=== PATIENT | female | born 1990 | race Caucasian/White ===

== ENCOUNTER → 2017-10-31 | Outpatient (CLI) | payer MEDICAID, OTHER ==
[~2017-10-31] MED LIST: PREN-53 PO
--- NOTE | 2017-10-31 13:09 | Diagnostic Imaging Report ---
INDICATION: survey. TECHNIQUE: Multiple real-time grayscale images were obtained over the gravid uterus. COMPARISON: None. FINDINGS: There is a single live fetus in a cephalic presentation. heart rate was recorded at 161 beats per minute. The placenta is anterior. The amniotic fluid volume is normal. Cervical length is 4.6 cm. survey demonstrates kidneys, bladder, and stomach to be unremarkable. brain is unremarkable. There is a three-vessel cord with normal insertion. The spine is unremarkable. Four-chamber heart view was not well seen. Biometrical measurements are as follows: Biparietal 4.92 cm, age 21 weeks 0 days. Head circumference 18.34 cm, age 20 weeks 5 days. Abdominal circumference 15.53 cm, age 20 weeks 5 days. Femur length 3.36 cm, age 20 weeks 4 days. Sonographic estimate age: 20 weeks 6 days. Sonographic estimated date of delivery: 03/14/2018. Estimated Weight: 368 gm (+/- 54 gm). LMP percentile: 66%. heart rate: 161 beats per minute. number: 1 of 1. IMPRESSION: Single live IUP at approximately 20 weeks 6 days gestational age. Estimated date of confinement sonographically is 03/14/2018. survey is unremarkable, although the four-chamber heart view was not well visualized and followup could be obtained. Dictated by: Dictated on workstation # [id number]
== END ==
LOC: RAD 09:41
PROVIDERS: ATTEND Obstetrics & Gynecology
DX: Z36.89 Encounter for other specified antenatal screening (principal); Z3A.20 20 weeks gestation of pregnancy
CPT/HCPCS: 76805

== ENCOUNTER 2018-03-06 05:30 | Outpatient (CLI) | payer OTHER ==
[~2018-03-06] VITALS: Ht 170.2 cm; Wt 106.6 kg
== END 2018-03-06 15:00 | disposition home or self-care (01) ==
LOC: PREOP 05:30
PROVIDERS: ATTEND Obstetrics & Gynecology
DX: Z01.818 Encounter for other preprocedural examination (principal)

== ENCOUNTER 2018-03-13 03:12 | Inpatient (IN) | payer OTHER ==
[~2018-03-13] VITALS: Ht 170.2 cm; Wt 107.5 kg
[2018-03-13] VITALS (7 sets, daily range): BP systolic 116–130; BP diastolic 67–83
[2018-03-13] MEDS ORDERED: CITRIC ACID/SOB CIT (BICITRA) 30 ML UDC ONE (05:08)
[2018-03-13] MEDS ORDERED: METOCLOPRAMIDE INJ 10 MG/2 ML (REGLAN) ONE (05:08)
[2018-03-13] MEDS ORDERED: LACTATED RINGERS 1,000 ML IV ONE (05:08)
[2018-03-13] MEDS ORDERED: FAMOTIDINE 20MG/2ML IV (PEPCID) ONE (05:08)
[2018-03-13] MEDS ORDERED: ceFAZolin 2 GM IV Premixed 50 ML ONE (05:13)
[2018-03-13] MEDS ORDERED: LACTATED RINGERS 1,000 ML IV SCH (05:58)
[2018-03-13] MEDS ORDERED: METOCLOPRAMIDE INJ 10 MG/2 ML (REGLAN) IV ONE (06:00)
[2018-03-13] MEDS ORDERED: ceFAZolin 2 GM IV Premixed 50 ML IV ONE (06:00)
[2018-03-13] MEDS ORDERED: FAMOTIDINE 20MG/2ML IV (PEPCID) IV ONE (06:00)
[2018-03-13] MEDS ORDERED: CITRIC ACID/SOB CIT (BICITRA) 30 ML UDC PO ONE (06:00)
[2018-03-13] MEDS: LACTATED RINGERS 1,000 ML IV SCH ×2 (06:36→07:30)
[2018-03-13] MEDS ORDERED: BUPIVACAINE SPINAL 0.75% (SENSORCAINE) 2 ML AMP ONE (06:42)
[2018-03-13] MEDS ORDERED: LIDOCAINE PF 2% 5 ML (XYLOCAINE) VIAL ONE (06:42)
[2018-03-13] MEDS ORDERED: OXYTOCIN/NORMAL SALINE 500 ML IV ONE ×2 (06:42→08:08)
[2018-03-13] MEDS ORDERED: fentaNYL INJECTION 100 MCG/2 ML AMP ONE (06:43)
[2018-03-13 06:47] LABS: BASOPHILS # (AUTO) 0.1 10^3/uL (0.0-0.1); BASOPHILS % (AUTO) 0 % (0-10); EOSINOPHILS # (AUTO) 0.4 10^3/uL (0.0-0.3); EOSINOPHILS % (AUTO) 2 % (0-10); HEMATOCRIT 37 % (35-52); HEMOGLOBIN 12.3 G/DL (11.5-16.0); LYMPHOCYTES # (AUTO) 3.8 X 10^3 (1.0-4.0); LYMPHOCYTES % (AUTO) 23 % (12-44); MEAN CORPUSCULAR HEMOGLOBIN 27 PG (25-34); MEAN CORPUSCULAR HGB CONC 33 G/DL (32-36); MEAN CORPUSCULAR VOLUME 83 FL (80-99); MEAN PLATELET VOLUME 12.6 FL (7.4-10.4); MONOCYTES # (AUTO) 1.3 X 10^3 (0.0-1.0); MONOCYTES % (AUTO) 8 % (0-12); NEUTROPHILS % (AUTO) 67 % (42-75); PLATELET COUNT 159 10^3/uL (130-400); RED BLOOD COUNT 4.49 10^6/uL (4.35-5.85); RED CELL DISTRIBUTION WIDTH 14.9 % (10.0-14.5); WHITE BLOOD COUNT 16.5 10^3/uL (4.3-11.0)
[2018-03-13 06:58] LABS: BAND NEUTROPHILS 0 %; BASOPHILS % (MANUAL) 0 %; EOSINOPHILS % (MANUAL) 2 %; LYMPHOCYTES % (MANUAL) 27 %; MONOCYTES % (MANUAL) 6 %; NEUTROPHILS % (MANUAL) 61 %; REACTIVE LYMPHOCYTES 4 %
[2018-03-13 06:59] LABS: ANISOCYTOSIS SLIGHT; PLATELET CLUMPS SLIGHT; TOXIC GRANULATION/VACUOLAZATIO 1+
--- NOTE | 2018-03-13 07:16 | History & Physical-OB ---
OB - Chief Complaint & HPI Date/Time Date of Admission: Date of Admission: Mar 13, 2018 at 5:53 am Date seen by a Provider: Mar 13, 2018 Time Seen by a Provider: 07:00 Chief Complaint/History OB-Reason for Admission/Chief: Section Hx : 2 Hx Para: 1 Expected Date of Delivery: Mar 18, 2018 Gestational Age in Weeks: 39 Gestational Age in Days: 2 Indication for : desires repeat Admission Nurse Assessment Rev: Yes History of Labs AB pos Antibody neg RI RPR NR HBsAg NR HIV NR GC neg GBS neg Allergies and Home Medications Allergies Coded Allergies: No Known Drug Allergies (Unverified , 04/06/16) Home Medications [id number]/Iron Fumarate/FA/Dss 1 Each Tablet, 1 EACH PO DAILY, (Reported) Patient Home Medication List Home Medication List Reviewed: Yes OB - History Hx of Present Care: Yes Ultrasounds: Normal mid trimester US Obstetrical Complications: None Medical Complications: None Delivery History Adverse Rxn to Tranfusion: No (N/A) Patient Past Medical History n/a Social History/Family History HIV/AIDS: No Recent Infectious Disease Expo: No Sexually Transmitted Disease: No Alcohol Use: Denies Use Recreational Drug Use: No Immunizations Date of Influenza Vaccine: Jan 17, 2016 OB - Admission Exam Physical Exam Vitals: Vital Signs 03/13/18 06:10 Temp 96.8 Pulse 96 Resp 18 B/P (MAP) 130/83 (99) O2 Delivery Room Air HEENT: NCAT Heart: Rhythm Normal Lungs: Clear Abdomen: Gravid Extremities: Normal Reflexes: Normal Heart Rate: 130's Accelerations: Accelerations Present Decelerations: No Decelerations Short Term Variability: Present Group Home Variability: Average (6-25) Contractions on Admission: >10 Minutes Apart Intensity: Mild Labs Laboratory Tests Test 03/13/18 06:30 Range/Units White Blood Count 16.5 H 4.3-11.0 10^3/uL Red Blood Count 4.49 4.35-5.85 10^6/uL Hemoglobin 12.3 11.5-16.0 G/DL Hematocrit 37 35-52 % Mean Corpuscular Volume 83 80-99 FL Mean Corpuscular Hemoglobin 27 25-34 PG Mean Corpuscular Hemoglobin Concent 33 32-36 G/DL Red Cell Distribution Width 14.9 H 10.0-14.5 % Platelet Count 159 130-400 10^3/uL Mean Platelet Volume 12.6 H 7.4-10.4 FL Neutrophils (%) (Auto) 67 42-75 % Lymphocytes (%) (Auto) 23 12-44 % Monocytes (%) (Auto) 8 0-12 % Eosinophils (%) (Auto) 2 0-10 % Basophils (%) (Auto) 0 0-10 % Neutrophils # (Auto) 11.0 H 1.8-7.8 X 10^3 Lymphocytes # (Auto) 3.8 1.0-4.0 X 10^3 Monocytes # (Auto) 1.3 H 0.0-1.0 X 10^3 Eosinophils # (Auto) 0.4 H 0.0-0.3 10^3/uL Basophils # (Auto) 0.1 0.0-0.1 10^3/uL Neutrophils % (Manual) 61 % Lymphocytes % (Manual) 27 % Monocytes % (Manual) 6 % Eosinophils % (Manual) 2 % Basophils % (Manual) 0 % Band Neutrophils 0 % Reactive Lymphocytes 4 % Toxic Granulation 1+ Clumped Platelets SLIGHT Anisocytosis SLIGHT OB - Assessment/Plan/Diagnosis Assessment Assessment: section Admission Dx 27 yo @ 39 weeks Previous GBS neg Hx of PP depression Admission Status: Inpatient Order (span 2 midnights) Reason for Inpatient Admission: 27 yo @ 39 weeks Previous GBS neg Hx of PP depression Plan Plan: Section BIPIN CURRY DO Mar 13, 2018 7:16 am
[2018-03-13] MEDS ORDERED: SERT50TA2 PO (07:21)
[2018-03-13] MEDS ORDERED: ACHD5005 PO (07:21)
[2018-03-13] MEDS ORDERED: IBUP-844 PO (07:21)
[2018-03-13] MEDS ORDERED: DOCU100C37 PO (07:21)
--- NOTE | 2018-03-13 07:23 | Discharge Inst-Women's Service ---
Discharge Inst-Women's Serv Depart Medication/Instructions New, Converted or Re-Newed RX: RX on Chart Final Diagnosis POD 2 RLTCS Consults/Follow Up Additional Follow Up: Yes Orders/Referrals Dr. Paul in 7-10 day and in 6 weeks Activity Activity: Activity as Tolerated Driving Instructions: No Driving for 1 Week NO SMOKING: NO SMOKING Nothing Inside Vagina: No Douching, No [place], No Tampons Diet Discharge Diet: No Restrictions Symptoms to Report to : Bleeding Excessive, Pain Increased, Fever Over 101 Degrees F, Vaginal Bleeding Increase, Questions/Concerns For Any Problems or Questions: Contact Your Physician Skin/Wound Care Infection Signs and Symptoms: Increased Redness, Foul Odor of Wound, Increased Drainage, Skin Itchy or Has a Rash, Increased Swelling, Temperature Above 101 F Operative Area Clean and Dry: Keep Incision Clean/Dry Stitches/[place]/Dermabond: Dermabond, Care of Stitches Bathing Instructions: BIPIN Wong DO Mar 13, 2018 7:23 am
[2018-03-13] MEDS ORDERED: PHENYLEPHRINE 100 MCG/ML 10 ML (ANESTHESIA) SYR ONE (07:29)
[2018-03-13] MEDS ORDERED: MEASLES,MUMPS,RUBELLA 1 EA INJ SC SCH (07:30)
[2018-03-13] MEDS ORDERED: TETANUS,DIPTH,PERTUSS P/F (BOOSTRIX) 0.5 ML VIAL IM SCH (07:30)
[2018-03-13] MEDS ORDERED: HYDROmorphone 2 MG/ML VIAL (DILAUDID) IV PRN (07:30)
[2018-03-13] MEDS ORDERED: ONDANSETRON 4 MG/2 ML (SDV) Z0FRAN IVP PRN ×2 (07:30→09:00)
[2018-03-13] MEDS: OXYTOCIN/NORMAL SALINE 500 ML IV SCH ×2 (07:40→08:47)
[2018-03-13] MEDS ORDERED: ROPIVACAINE 5MG/ML 30ML VIAL ONE (07:41)
[2018-03-13] MEDS ORDERED: SERTRALINE 50 MG (ZOLOFT) TABLET PO SCH (09:00)
[2018-03-13] MEDS ORDERED: HYDROmorphone 2 MG/ML VIAL (DILAUDID) IV ONE (09:00)
[2018-03-13] MEDS ORDERED: FLU QUADRIvalent (5+ YOA) 2018-2019 (AFLURIA) 0.5 ML IM ONE (10:00)
[2018-03-13] MEDS: KETOROLAC 30 MG/ML VIAL IVP SCH ×3 (10:47→22:58)
[2018-03-13] MEDS: DOCUSATE SODIUM 100 MG (COLACE) CAP PO SCH ×2 (12:17→20:17)
[2018-03-13] MEDS: HYDROcodone/APAP 5 MG/325 MG (LORTAB) TAB PO PRN ×3 (12:18→22:58)
--- NOTE | 2018-03-13 14:02 | OPERATIVE REPORT ---
DATE OF SERVICE: PREOPERATIVE DIAGNOSES: 1. A 27-year-old G2, P1 at 39 weeks gestation. 2. Previous section. POSTOPERATIVE DIAGNOSES: 1. A 27-year-old G2, P1 at 39 weeks gestation. 2. Previous section. PROCEDURE: Repeat low transverse section. SURGEON: Andry Paul DO. ANESTHESIA: Spinal. ESTIMATED BLOOD LOSS: 300 mL. URINE OUTPUT: 100 mL cleared at the end of the procedure. FLUIDS: 1100 mL of lactate Ringer solution. FINDINGS: A live male weighing 7 pounds 5 ounces, Apgars of 8 and 9. Grossly normal appearing uterus, bilateral fallopian tubes and ovaries. SPECIMENS SENT: Placenta. INDICATIONS FOR PROCEDURE: This 27-year-old female in a patient who had sought care in my office. It was only complicated by disruption in her care due to missing appointments anywhere from 22 weeks to approximately 30 to 33 weeks after which she was compliant with her care. We had discussed in detail at her preoperative visit and her care repeat . Risks of the procedure have been discussed with the patient in detail including risk of bleeding, infection, damage to surrounding structures including but not limited to bowel, bladder, ureter, kidneys, possible need for reoperation, damage to the infant, possible need for blood transfusion, risk from anesthesia and even . As everything was discussed with the patient, consent was obtained in the preoperative area and the patient was taken to the operating room. OPERATIVE REPORT IN DETAIL: Once in the operating room, spinal analgesia was found to be adequate. She was placed in supine position with leftward tilt, prepped and draped in normal sterile fashion. A timeout was performed. Anesthesia was tested. I then proceeded to make a Pfannenstiel skin incision through previous existing scar and carried down to the underlying fascia using Bovie cautery. Fascial incision extended laterally using Bovie cautery. Superior aspect of fascial incision was then grasped with Jessica clamps, tented up and dissected off the underlying rectus muscle. The inferior aspect of the fascial incision was grasped with Jessica clamps, tented up and dissected off the underlying rectus muscles. Rectus muscles were dissected down the midline using Metzenbaum scissors, which exposes the peritoneum, which I entered bluntly and extended using blunt traction. I then placed an Pascual ring retractor in peritoneal incision, which offers excellent lateral sidewall retraction. After identifying the lower uterine segment, which was found to be thinned out, I make a low transverse incision into the vesicouterine peritoneum and bluntly dissected this off the lower uterine segment. I proceeded with my myotomy until membranes are visualized, at which point I extended the uterine incision laterally and superiorly using bandage scissors. The infant was found in the vertex presentation after amniotomy is iatrogenically performed during the extension of the uterine incision. Clear fluid was noted. With gentle fundal pressure, the infant's head was elevated up to the incision where the nares and oropharynx were bulb suctioned. Anterior and posterior shoulders were delivered. Infant was then brought out into the operative field where the cord was doubly clamped and cut and infant was handed off to waiting nurses in attendance. Cord blood was collected. Three-vessel cord was intact. Placenta was delivered spontaneously thereafter. IV Pitocin was initiated to facilitate uterine contraction. Uterine fundus becomes firm with bimanual massage. The uterus was exteriorized and cleared of endometrial clots and debris. I then proceeded with closing the uterine incision using 0 Vicryl suture in running locked fashion. Second layer of imbricating 0 Monocryl was placed. Excellent hemostasis was noted after doing this. I then placed the uterus back within the pelvis and copiously irrigated the pelvis using normal saline. Once again, there was no active bleeding noted from any of my dissection planes. I placed Interceed antiadhesive over my low transverse incision and proceeded with closing the peritoneum using 3-0 Vicryl suture in running fashion. Rectus muscle reapproximated using 3-0 Vicryl suture in interrupted fashion. Fascia was reapproximated using 0 Vicryl suture in running fashion. Subcutaneous tissue was reapproximated using 3-0 plain and an interrupted subcutaneous stitch and skin reapproximated using 4-0 Monocryl in a running subcuticular. Dermabond was applied to incision, sterile dressing and adhesive white tape. The patient tolerated the procedure well and sent to recovery area in stable condition. Lap and sponge counts correct at the end of the procedure. Instruments counts correct as well. Two grams of Ancef given preoperatively for infection prophylaxis. Job ID: [id number] DocumentID: [id number] Dictated Date: 03/13/2018 08:17:57 Delivery Crew Worker Date: 03/13/2018 14:02:18 Dictated By: DO HANG LEO
[2018-03-13] MEDS: SERTRALINE 50 MG (ZOLOFT) TABLET PO SCH (20:18)
[2018-03-13] MEDS: CATHETER FLUSH 10 ML SYR IV SCH ×2 (21:15→22:58)
[2018-03-14 04:16] VITALS: BP 117/74
[2018-03-14] MEDS: CATHETER FLUSH 10 ML SYR IV SCH (04:16)
[2018-03-14] MEDS: KETOROLAC 30 MG/ML VIAL IVP SCH (04:16)
[2018-03-14 06:09] LABS: BASOPHILS # (AUTO) 0.1 10^3/uL (0.0-0.1); BASOPHILS % (AUTO) 0 % (0-10); EOSINOPHILS # (AUTO) 0.3 10^3/uL (0.0-0.3); EOSINOPHILS % (AUTO) 2 % (0-10); HEMATOCRIT 33 % (35-52); HEMOGLOBIN 10.8 G/DL (11.5-16.0); LYMPHOCYTES # (AUTO) 3.8 X 10^3 (1.0-4.0); LYMPHOCYTES % (AUTO) 23 % (12-44); MEAN CORPUSCULAR HEMOGLOBIN 27 PG (25-34); MEAN CORPUSCULAR HGB CONC 32 G/DL (32-36); MEAN CORPUSCULAR VOLUME 85 FL (80-99); MEAN PLATELET VOLUME 11.9 FL (7.4-10.4); MONOCYTES # (AUTO) 1.2 X 10^3 (0.0-1.0); MONOCYTES % (AUTO) 7 % (0-12); NEUTROPHILS # (AUTO) 10.9 X 10^3 (1.8-7.8); NEUTROPHILS % (AUTO) 67 % (42-75); PLATELET COUNT 127 10^3/uL (130-400); RED BLOOD COUNT 3.94 10^6/uL (4.35-5.85); RED CELL DISTRIBUTION WIDTH 14.9 % (10.0-14.5); WHITE BLOOD COUNT 16.4 10^3/uL (4.3-11.0)
--- NOTE | 2018-03-14 07:36 | Anesthesia-Regional Post-Op ---
Regional Patient Condition Mental Status: Alert, Oriented x3 Circulation: Same as Pre-Op Headache: Absent Sensation: Full Recovery Motor Block: Absent Post Op Complications Complications None Follow Up Care/Instructions Patient Instructions None needed. Anesthesia/Patient Condition Patient is doing well, no complaints, stable vital signs, no apparent adverse anesthesia problems. No complications reported per nursing. MEREDITH RAMOS CRNA Mar 14, 2018 07:36
[2018-03-14 08:00] VITALS: BP 120/77
--- NOTE | 2018-03-14 08:27 | Postpartum Progress Note ---
Note Note Day # 1 Subjective: Patient is without complaints. Ambulating, voiding. Tolerating a regular diet without nausea or vomiting. Normal lochia. Pain is well controlled with oral pain medications. Objective: Vital Sign - Last 24 Hours 03/13/18 03/13/18 03/13/18 03/13/18 09:30 11:00 11:55 12:00 Temp 98.6 98.4 98.4 Pulse 68 74 68 Resp 18 18 18 B/P (MAP) 120/76 (91) 118/67 (84) 125/79 (94) Pulse Ox 98 96 97 O2 Delivery Room Air Room Air Room Air Room Air 03/13/18 03/13/18 03/13/18 03/14/18 16:30 20:18 23:40 04:16 Temp 98.2 98.3 97.6 97.6 Pulse 86 75 84 82 Resp 18 18 18 18 B/P (MAP) 119/77 (91) 116/77 (90) 121/79 (93) 117/74 (88) Pulse Ox 97 96 97 96 O2 Delivery Room Air Room Air Room Air Room Air Intake and Output 03/13/18 03/13/18 03/14/18 15:00 23:00 07:00 Intake Total 3050 ml 1600 ml 1200 ml Output Total 100 ml 450 ml 800 ml Balance 2950 ml 1150 ml 400 ml Physical Exam: General - Alert and oriented, no apparent distress Abdomen - Soft, appropriately tender to palpation, non-distended, fundus firm at umbilicus Extremities - no edema, negative Mirza's bilaterally Incision- c/d/i Assessment: POD 1 RLTCS Acute blood loss anemia Plan: Routine care. Encourage breast feeding. Encourage ambulation. Ferrous sulfate supplementation. Plan for discharge tomorrow Vitals - Labs Vital Signs - I&O Vital Signs Date Time Temp Pulse Resp B/P (MAP) Pulse Ox O2 Delivery O2 Flow Rate FiO2 03/14/18 04:16 97.6 82 18 117/74 (88) 96 Room Air 03/13/18 23:40 97.6 84 18 121/79 (93) 97 Room Air 03/13/18 20:18 98.3 75 18 116/77 (90) 96 Room Air 03/13/18 16:30 98.2 86 18 119/77 (91) 97 Room Air 03/13/18 12:00 98.4 68 18 125/79 (94) 97 Room Air 03/13/18 11:55 Room Air 03/13/18 11:00 98.4 74 18 118/67 (84) 96 Room Air 03/13/18 09:30 98.6 68 18 120/76 (91) 98 Room Air I & O 03/14/18 07:00 Intake Total 5850 ml Output Total 1350 ml Balance 4500 ml Labs Laboratory Tests 03/13/18 15:03: Glucometer 167H 03/14/18 05:30: White Blood Count 16.4H, Red Blood Count 3.94L, Hemoglobin 10.8L, Hematocrit 33L , Mean Corpuscular Volume 85, Mean Corpuscular Hemoglobin 27, Mean Corpuscular Hemoglobin Concent 32, Red Cell Distribution Width 14.9H, Platelet Count 127L, Mean Platelet Volume 11.9H, Neutrophils (%) (Auto) 67, Lymphocytes (%) (Auto) 23 , Monocytes (%) (Auto) 7, Eosinophils (%) (Auto) 2, Basophils (%) (Auto) 0, Neutrophils # (Auto) 10.9H, Lymphocytes # (Auto) 3.8, Monocytes # (Auto) 1.2H, Eosinophils # (Auto) 0.3, Basophils # (Auto) 0.1 BIPIN CURRY DO Mar 14, 2018 08:27
[2018-03-14] MEDS ORDERED: FLU QUADRIvalent (5+ YOA) 2018-2019 (AFLURIA) 0.5 ML IM ONE (08:41)
[2018-03-14] MEDS: DOCUSATE SODIUM 100 MG (COLACE) CAP PO SCH ×2 (09:06→20:13)
[2018-03-14] MEDS: HYDROcodone/APAP 5 MG/325 MG (LORTAB) TAB PO PRN ×3 (09:06→20:13)
[2018-03-14] MEDS: IBUPROFEN 600 MG (MOTRIN) TAB PO SCH ×3 (10:59→23:56)
[2018-03-14 13:00] VITALS: BP 136/74
[2018-03-14 16:55] VITALS: BP 130/75
[2018-03-14 23:56] VITALS: BP 115/71
[2018-03-15] MEDS: SERTRALINE 50 MG (ZOLOFT) TABLET PO SCH (00:12)
[2018-03-15] MEDS: HYDROcodone/APAP 5 MG/325 MG (LORTAB) TAB PO PRN ×2 (03:58→09:16)
[2018-03-15 06:03] VITALS: BP 111/70
[2018-03-15] MEDS: IBUPROFEN 600 MG (MOTRIN) TAB PO SCH ×2 (06:03→12:43)
--- NOTE | 2018-03-15 08:33 | Postpartum Progress Note ---
Note Note Day # 2 Subjective: Patient is without complaints. Ambulating, voiding. Tolerating a regular diet without nausea or vomiting. Normal lochia. Pain is well controlled with oral pain medications. Objective: Vital Sign - Last 24 Hours 03/14/18 03/14/18 03/14/18 03/15/18 13:00 16:55 23:56 06:03 Temp 98.8 98.1 99.4 99.2 Pulse 98 78 93 84 Resp 18 18 18 18 B/P (MAP) 136/74 (94) 130/75 (93) 115/71 (86) 111/70 (84) Pulse Ox 98 98 98 98 O2 Delivery Room Air Room Air Room Air Intake and Output 03/14/18 03/14/18 03/15/18 15:00 23:00 07:00 Intake Total 1860 ml 1200 ml Output Total 1650 ml 1100 ml Balance 210 ml 100 ml Physical Exam: General - Alert and oriented, no apparent distress Abdomen - Soft, appropriately tender to palpation, non-distended, fundus firm at umbilicus Extremities - no edema, negative Mirza's bilaterally Incision- c/d/i Assessment: POD 2 RLTCS Acute blood loss anemia Plan: Routine care. Encourage breast feeding. Encourage ambulation. Ferrous sulfate supplementation. Plan for discharge today Vitals - Labs Vital Signs - I&O Vital Signs Date Time Temp Pulse Resp B/P (MAP) Pulse Ox O2 Delivery O2 Flow Rate FiO2 03/15/18 06:03 99.2 84 18 111/70 (84) 98 Room Air 03/14/18 23:56 99.4 93 18 115/71 (86) 98 Room Air 03/14/18 16:55 98.1 78 18 130/75 (93) 98 Room Air 03/14/18 13:00 98.8 98 18 136/74 (94) 98 I & O 03/15/18 07:00 Intake Total 3060 ml Output Total 2750 ml Balance 310 ml Labs Microbiology 03/13/18 MRSA Screen - Final, Complete MRSA not isolated BIPIN CURRY DO Mar 15, 2018 8:33 am
[2018-03-15] MEDS: DOCUSATE SODIUM 100 MG (COLACE) CAP PO SCH (09:15)
[2018-03-15 12:30] VITALS: BP 115/69
[2018-03-15 14:35] VITALS: BP 115/69
== END 2018-03-15 14:35 | disposition home or self-care (01) | DRG 788 ==
LOC: LDRP 05:53
PROVIDERS: ADMIT Obstetrics & Gynecology; ATTEND Obstetrics & Gynecology
PROC: 10D00Z1 Extraction of Products of Conception, Low, Open Approach (ICD-10-PCS; principal; 2018-03-13 07:13)
DX: O34.211 Maternal care for low transverse scar from previous cesarean delivery (principal); O90.81 Anemia of the puerperium; Z86.59 Personal history of other mental and behavioral disorders; Z3A.39 39 weeks gestation of pregnancy; Z37.0 Single live birth
CPT/HCPCS: 36415; 82962; 85007; 85025; 85027; 86850; 86900; 86901; 87081; 90471; 90686; 90715; 94664

== ENCOUNTER 2018-04-14 02:15 | Emergency (ER) | payer OTHER ==
[~2018-04-14] VITALS: Ht 167.6 cm; Wt 104.3 kg
[~2018-04-14 02:15] MED LIST changes: +ACHD5005 PO; +DOCU100C37 PO; +IBUP-844 PO; +SERT50TA2 PO
--- OUTSIDE RECORDS SUMMARY | 2018-04-14 02:21 | XMS REPORT | Continuity of Care Document ---
Author Author [facility] Organization [facility] Address Unknown Phone Unavailable Allergies Active Description Code Type Severity Reaction Onset Reported/Identified Relationship to Patient Clinical Status Yes No Known Drug Allergies [id number] Drug Allergy Unknown N/A 04/06/2016 Medications There is no data. Problems Date Dx Coded Attending Type Code Diagnosis Diagnosed By 04/06/2016 BIPIN CURRY DO Ot O99.89 OTH DISEASES AND CONDITIONS COMPL PREG/C 04/06/2016 BIPIN CURRY DO Ot Q79.3 GASTROSCHISIS 04/06/2016 BIPIN CURRY DO Ot Z3A.33 33 WEEKS GESTATION OF 04/09/2016 BIPIN CURRY DO Ot O99.89 OTH DISEASES AND CONDITIONS COMPL PREG/C 04/09/2016 BIPIN CURRY DO Ot Q79.3 GASTROSCHISIS 04/09/2016 BIPIN CURRY DO Ot Z3A.33 33 WEEKS GESTATION OF 11/01/2017 BIPIN CURRY DO Ot Z36.89 ENCOUNTER FOR OTHER SPECIFIED 11/01/2017 BIPIN CURRY DO Ot Z3A.20 20 WEEKS GESTATION OF 02/23/2018 BIPIN CURRY DO Ot Z36.89 ENCOUNTER FOR OTHER SPECIFIED 02/23/2018 BIPIN CURRY DO Ot Z3A.20 20 WEEKS GESTATION OF 03/06/2018 BIPIN CURRY DO Ot Z36.89 ENCOUNTER FOR OTHER SPECIFIED 03/06/2018 BIPIN CURRY DO Ot Z3A.20 20 WEEKS GESTATION OF 03/07/2018 BIPIN CURRY DO Ot Z01.818 ENCOUNTER FOR OTHER PREPROCEDURAL EXAMIN 03/08/2018 BIPIN CURRY DO Ot Z01.818 ENCOUNTER FOR OTHER PREPROCEDURAL EXAMIN 03/15/2018 BIPIN CURRY DO Ot O34.211 MATERN CARE FOR LOW TRANSVERSE SCAR FROM 03/15/2018 BIPIN CURRY DO Ot O90.81 ANEMIA OF THE PUERPERIUM 03/15/2018 BIPIN CURRY DO Ot Z37.0 SINGLE LIVE 03/15/2018 BIPIN CURRY DO Ot Z3A.39 39 WEEKS GESTATION OF 03/15/2018 BIPIN CURRY DO Ot Z86.59 PERSONAL HISTORY OF OTHER MENTAL AND BEH 03/20/2018 BIPIN CURRY DO Ot Z36.89 ENCOUNTER FOR OTHER SPECIFIED 03/20/2018 BIPIN CURRY DO, Ot Z3A.20 20 WEEKS GESTATION OF Procedures Code Description Performed By Performed On [id number] EXTRACTION OF PRODUCTS OF CONCEPTION, 03/13/2018 Results Test Result Range Complete blood count (CBC) with automated white blood cell (WBC) differential - 03/13/18 06:30 Blood leukocytes automated count (number/volume) 16.5 10*3/uL 4.3-11.0 Blood erythrocytes automated count (number/volume) 4.49 10*6/uL 4.35-5.85 Venous blood hemoglobin measurement (mass/volume) 12.3 g/dL 11.5-16.0 Blood hematocrit (volume fraction) 37 % 35-52 Automated erythrocyte mean corpuscular volume 83 [foz_us] 80-99 Automated erythrocyte mean corpuscular hemoglobin (mass per erythrocyte) 27 pg 25-34 Automated erythrocyte mean corpuscular hemoglobin concentration measurement ( mass/volume) 33 g/dL 32-36 Automated erythrocyte distribution width ratio 14.9 % 10.0-14.5 Automated blood platelet count (count/volume) 159 10*3/uL 130-400 Automated blood platelet mean volume measurement 12.6 [foz_us] 7.4-10.4 Automated blood neutrophils/100 leukocytes 67 % 42-75 Automated blood lymphocytes/100 leukocytes 23 % 12-44 Blood monocytes/100 leukocytes 8 % 0-12 Automated blood eosinophils/100 leukocytes 2 % 0-10 Automated blood basophils/100 leukocytes 0 % 0-10 Blood neutrophils automated count (number/volume) 11.0 10*3 1.8-7.8 Blood lymphocytes automated count (number/volume) 3.8 10*3 1.0-4.0 Blood monocytes automated count (number/volume) 1.3 10*3 0.0-1.0 Automated eosinophil count 0.4 10*3/uL 0.0-0.3 Automated blood basophil count (count/volume) 0.1 10*3/uL 0.0-0.1 Blood manual differential performed detection - 03/13/18 06:30 Blood monocytes/100 leukocytes 6 % NRG Manual blood segmented neutrophils/100 leukocytes 61 % NRG Blood band neutrophils/100 leukocytes 0 % NRG Manual blood lymphocytes/100 leukocytes 27 % NRG Manual eosinophils/100 leukocytes in nose 2 % NRG Manual blood basophils/100 leukocytes 0 % NRG Blood lymphocytes variant/100 leukocytes 4 % NRG Blood anisocytosis detection by light microscopy SLIGHT NRG Blood toxic granules detection by light microscopy 1+ NRG Blood platelet clump detection by light microscopy SLIGHT NRG Blood type T Indirect antibody screen panel - 03/13/18 06:30 ABO+Rh group ABP NRG Transfusion band number [id number] NRG Blood group antibody screen NEGATIVE NRG Methicillin resistant Staphylococcus aureus (MRSA) screening culture - 06:30 Methicillin resistant Staphylococcus aureus (MRSA) screening culture NEG NRG Capillary blood glucose measurement by glucometer (mass/volume) - 03/13/18 15: 03 Capillary blood glucose measurement by glucometer (mass/volume) 167 mg/dL 70-110 Complete blood count (CBC) with automated white blood cell (WBC) differential - 03/14/18 05:30 Blood leukocytes automated count (number/volume) 16.4 10*3/uL 4.3-11.0 Blood erythrocytes automated count (number/volume) 3.94 10*6/uL 4.35-5.85 Venous blood hemoglobin measurement (mass/volume) 10.8 g/dL 11.5-16.0 Blood hematocrit (volume fraction) 33 % 35-52 Automated erythrocyte mean corpuscular volume 85 [foz_us] 80-99 Automated erythrocyte mean corpuscular hemoglobin (mass per erythrocyte) 27 pg 25-34 Automated erythrocyte mean corpuscular hemoglobin concentration measurement ( mass/volume) 32 g/dL 32-36 Automated erythrocyte distribution width ratio 14.9 % 10.0-14.5 Automated blood platelet count (count/volume) 127 10*3/uL 130-400 Automated blood platelet mean volume measurement 11.9 [foz_us] 7.4-10.4 Automated blood neutrophils/100 leukocytes 67 % 42-75 Automated blood lymphocytes/100 leukocytes 23 % 12-44 Blood monocytes/100 leukocytes 7 % 0-12 Automated blood eosinophils/100 leukocytes 2 % 0-10 Automated blood basophils/100 leukocytes 0 % 0-10 Blood neutrophils automated count (number/volume) 10.9 10*3 1.8-7.8 Blood lymphocytes automated count (number/volume) 3.8 10*3 1.0-4.0 Blood monocytes automated count (number/volume) 1.2 10*3 0.0-1.0 Automated eosinophil count 0.3 10*3/uL 0.0-0.3 Automated blood basophil count (count/volume) 0.1 10*3/uL 0.0-0.1 Encounters ACCT No. Visit Date/Time Discharge Status Pt. Type Provider Facility Loc./Unit Complaint [id number] 03/13/2018 05:53:00 03/15/2018 14:35:00 DIS Inpatient BIPIN CURRY DO [facility] LDRP PREVIOUS SECTION [id number] 03/06/2018 05:30:00 03/06/2018 15:00:00 DIS Outpatient BIPIN CURRY DO [facility] PREOP PREVIOUS C/SECTION [id number] 10/31/2017 09:41:00 10/31/2017 23:59:59 CLS Outpatient BIPIN CURRY DO [facility] RAD ANATOMY SCAN [id number] 04/06/2016 13:57:00 04/06/2016 15:45:00 DIS Outpatient BIPIN CURRY DO [facility] WSo NON STRESS TEST [id number] 12/14/2012 13:02:00 12/14/2012 23:59:59 CLS Outpatient MAJOR, RAISA IRONER [facility] QUICK COUGH
[2018-04-14 02:41] LABS: BILIRUBIN,URINE NEGATIVE (NEGATIVE); CLARITY,URINE SLIGHTLY CLOUDY; COLOR,URINE YELLOW; GLUCOSE, URINE (UA) NEGATIVE (NEGATIVE); KETONES,URINE 2+ (NEGATIVE); LEUKOCYTE ESTERASE ,URINE 3+ (NEGATIVE); NITRITE,URINE NEGATIVE (NEGATIVE); PH,URINE 8 (5-9); PROTEIN,URINE 2+ (NEGATIVE); UROBILINOGEN,URINE NORMAL (NORMAL)
[2018-04-14] MEDS ORDERED: KETOROLAC 30 MG/ML VIAL IVP ONE (02:45)
[2018-04-14] MEDS ORDERED: ONDANSETRON 4 MG/2 ML (SDV) Z0FRAN IVP ONE (02:45)
--- NOTE | 2018-04-14 02:46 | ED Abdominal Pain ---
General Chief Complaint: Back Problems Stated Complaint: BACK PAIN, SOB; NAUSEA;DIZZINESS Source of Information: Patient, Family ( son), Spouse Exam Limitations: No Limitations History of Present Illness Date Seen by Provider: Apr 14, 2018 Time Seen by Provider: 02:34 Initial Comments The patient presents to ER by private conveyance walking and because of abdominal pain for the past 3 or 4 days has progressively gotten worse. She now says is the worst pain she's ever had. 3 weeks ago she had a second one she's ever had. No other abdominal surgeries. Her pain is across her back across both flanks radiating to the center of her midepigastric region. She's had some nausea and vomiting tonight. She tried taking some Gas-X to see if that would help with pain but it did not because she vomited it back up. She been more on the constipated side but she did take some laxatives earlier today and stool softeners and this helped her pass a normal bowel movement. This did not give her any relief. Her pains worse with movement and laying down. She took a bath which helped but he pads did not help. She has not tried any Tylenol or Motrin. She has no other significant medical history except for anxiety for which she uses Zoloft. She denies a history of kidney stones, gallbladder problems, peptic ulcer disease or GERD. She denies dysuria or hematuria. Allergies and Home Medications Allergies Coded Allergies: No Known Drug Allergies (Unverified , 04/06/16) Home Medications Cephalexin 500 Mg Tablet, 500 MG PO BID Prescribed by: CIPRIANO FANG on 04/14/1823 Docusate Sodium 100 Mg Capsule, 100 MG PO BID Prescribed by: BIPIN CURRY on 03/13/18720 Hydrocodone Bit/Acetaminophen 1 Tab Tab, 1-2 TAB PO Q4H PRN for PAIN-MODERATE Prescribed by: BIPIN CURRY on 03/13/18720 Ibuprofen 600 Mg Tablet, 600 MG PO Q6H Prescribed by: BIPIN CURRY on 03/13/18720 Ondansetron 4 Mg Tab.rapdis, 4 MG PO Q6H PRN for NAUSEA/VOMITING Prescribed by: CIPRIANO FANG on 04/14/18 05 [id number]/Iron Fumarate/FA/Dss 1 Each Tablet, 1 EACH PO DAILY, (Reported) Sertraline HCl 50 Mg Tablet, 50 MG PO DAILY Prescribed by: BIPIN CURRY on 03/13/18 0721 Tramadol HCl 50 Mg Tablet, 50 MG PO Q6H PRN for PAIN Prescribed by: CIPRIANO FANG on 04/14/18 0523 Patient Home Medication List Home Medication List Reviewed: Yes Review of Systems Review of Systems Constitutional: No chills, No fever EENTM: No Blurred Vision, No Double Vision Respiratory: Denies Cough, Denies Shortness of Air Cardiovascular: Denies Chest Pain, Denies Edema Gastrointestinal: Denies Abdomen Distended; Abdominal Pain; Denies Blood Streaked Stools; Constipated; Denies Diarrhea; Nausea, Poor Fluid Intake, Vomiting Genitourinary: Denies Burning, Denies Discharge Musculoskeletal: No back pain, No joint pain Skin: No pruritus; other (paint reddish brown spots over the midepigastrium for the past 2 weeks) Past Iuyrley-Akpfbt-Macdiq Hx Patient Social History Alcohol Use: Denies Use Recreational Drug Use: No Smoking Status: Former Smoker Type Used: Cigarettes Former Smoker, Quit: May 26, 2017 Recent Foreign Travel: No Contact w/Someone Who Travel: No Recent Hopitalizations: No Immunizations Up To Date Date of Influenza Vaccine: Jan 17, 2016 Seasonal Allergies Seasonal Allergies: No Past Medical History Surgeries: Yes Respiratory: No Cardiac: No Neurological: No Female Reproductive Disorders: Denies Sexually Transmitted Disease: No HIV/AIDS: No Genitourinary: No Gastrointestinal: Yes (DURING ) Musculoskeletal: No Endocrine: No HEENT: Yes (GLASSES) Loss of Vision: Bilateral Cancer: No Psychosocial: Yes Anxiety, Depression Integumentary: No Blood Disorders: No Adverse Reaction/Blood Tranf: No (N/A) Family Medical History Depression Physical Exam Vital Signs Vital Signs - First Documented 04/14/18 02:30 Temp 97.6 Pulse 77 Resp 26 B/P (MAP) 132/92 (105) Pulse Ox 99 O2 Delivery Room Air Capillary Refill : Height/Weight/BMI Height: 5'7.00" Weight: 237lbs. 0.0oz. 107.259373yp; 37.1 BMI Method: General Appearance: WD/WN, moderate distress HEENT: PERRL/EOMI, pharynx normal Respiratory: chest non-tender, lungs clear, normal breath sounds, no respiratory distress, no accessory muscle use Cardiovascular: normal peripheral pulses, regular rate, rhythm, no edema Gastrointestinal: normal bowel sounds, guarding, rebound (right lower quadrant) , tenderness (McBurney's point tenderness and tenderness over the epigastrium. Negative for Wright sign, Rovsing, so as or other mesenteric signs.) Back: normal inspection, CVA tenderness (R), CVA tenderness (L) Neurologic/Psychiatric: alert, oriented x 3, other (anxious affect) Skin: normal color, warm/dry Focused Exam Lactate Level 04/14/18 03:28: Lactic Acid Level 0.92 Lactic Acid Level Laboratory Tests Test 04/14/18 03:28 Lactic Acid Level 0.92 MMOL/L (0.50-2.00) Progress/Results/Core Measures Results/Orders Lab Results Laboratory Tests Test 04/14/18 02:32 04/14/18 03:00 04/14/18 03:28 Range/Units Urine Color YELLOW Urine Clarity SLIGHTLY CLOUDY Urine pH 8 5-9 Urine Specific Melba 1.010 L 1.016-1.022 Urine Protein 2+ H NEGATIVE Urine Glucose (UA) NEGATIVE NEGATIVE Urine Ketones 2+ H NEGATIVE Urine Nitrite NEGATIVE NEGATIVE Urine Bilirubin NEGATIVE NEGATIVE Urine Urobilinogen NORMAL NORMAL MG/DL Urine Leukocyte Esterase 3+ H NEGATIVE Urine RBC (Auto) 1+ H NEGATIVE Urine RBC 0-2 /HPF Urine WBC 10-25 H /HPF Urine Squamous Epithelial Cells 2-5 /HPF Urine Crystals NONE /LPF Urine Bacteria MODERATE H /HPF Urine Casts NONE /LPF Urine Mucus LARGE H /LPF Urine Culture Indicated YES Urine Opiates Screen NEGATIVE NEGATIVE Urine Oxycodone Screen NEGATIVE NEGATIVE Urine Methadone Screen NEGATIVE NEGATIVE Urine Propoxyphene Screen NEGATIVE NEGATIVE Urine Barbiturates Screen NEGATIVE NEGATIVE Ur Tricyclic Antidepressants Screen NEGATIVE NEGATIVE Urine Phencyclidine Screen NEGATIVE NEGATIVE Urine Amphetamines Screen NEGATIVE NEGATIVE Urine Methamphetamines Screen NEGATIVE NEGATIVE Urine Benzodiazepines Screen NEGATIVE NEGATIVE Urine Cocaine Screen NEGATIVE NEGATIVE Urine Cannabinoids Screen NEGATIVE NEGATIVE White Blood Count 17.4 H 4.3-11.0 10^3/uL Red Blood Count 4.83 4.35-5.85 10^6/uL Hemoglobin 12.9 11.5-16.0 G/DL Hematocrit 40 35-52 % Mean Corpuscular Volume 82 80-99 FL Mean Corpuscular Hemoglobin 27 25-34 PG Mean Corpuscular Hemoglobin Concent 32 32-36 G/DL Red Cell Distribution Width 14.9 H 10.0-14.5 % Platelet Count 216 130-400 10^3/uL Mean Platelet Volume 11.8 H 7.4-10.4 FL Neutrophils (%) (Auto) 72 42-75 % Lymphocytes (%) (Auto) 18 12-44 % Monocytes (%) (Auto) 6 0-12 % Eosinophils (%) (Auto) 3 0-10 % Basophils (%) (Auto) 1 0-10 % Neutrophils # (Auto) 12.6 H 1.8-7.8 X 10^3 Lymphocytes # (Auto) 3.1 1.0-4.0 X 10^3 Monocytes # (Auto) 1.0 0.0-1.0 X 10^3 Eosinophils # (Auto) 0.5 H 0.0-0.3 10^3/uL Basophils # (Auto) 0.1 0.0-0.1 10^3/uL Neutrophils % (Manual) 70 % Lymphocytes % (Manual) 20 % Monocytes % (Manual) 4 % Eosinophils % (Manual) 4 % Band Neutrophils 2 % Blood Morphology Comment NORMAL Sodium Level 141 135-145 MMOL/L Potassium Level 3.9 3.6-5.0 MMOL/L Chloride Level 106 98-107 MMOL/L Carbon Dioxide Level 20 L 21-32 MMOL/L Anion Gap 15 H 5-14 MMOL/L Blood Urea Nitrogen 12 7-18 MG/DL Creatinine 0.83 0.60-1.30 MG/DL Estimat Glomerular Filtration Rate > 60 BUN/Creatinine Ratio 14 Glucose Level 116 H 70-105 MG/DL Calcium Level 9.4 8.5-10.1 MG/DL Corrected Calcium 9.1 8.5-10.1 MG/DL Magnesium Level 1.9 1.8-2.4 MG/DL Total Bilirubin 0.3 0.1-1.0 MG/DL Aspartate Amino Transf (AST/SGOT) 15 5-34 U/L Alanine Aminotransferase (ALT/SGPT) 14 0-55 U/L Alkaline Phosphatase 105 40-136 U/L C-Reactive Protein High Sensitivity 1.67 H 0.00-0.50 MG/DL Total Protein 7.9 6.4-8.2 GM/DL Albumin 4.4 3.2-4.5 GM/DL Lipase 42 8-78 U/L Lactic Acid Level 0.92 0.50-2.00 MMOL/L My Orders Orders - CIPRIANO FANG Ua Culture If Indicated (04/14/18 02:25) Urine Bedside (04/14/18 02:25) Drug Screen Stat (Urine) (04/14/18 02:25) Ondansetron Injection (Zofran Injectio (04/14/18 02:45) Ketorolac Injection (Toradol Injection) (04/14/18 02:45) Cbc With Automated Diff (04/14/18 02:39) Comprehensive Metabolic Panel (04/14/18 02:39) Hs C Reactive Protein (04/14/18 02:39) Lipase (04/14/18 02:39) Magnesium (04/14/18 02:39) Urine Culture (04/14/18 02:32) Manual Differential (04/14/18 03:00) Blood Culture (04/14/18 03:16) Lactic Acid Analyzer (04/14/18 03:16) Saline Lock/Iv-Start (04/14/18 03:17) Ns Iv 1000 Ml (Sodium Chloride 0.9%) (04/14/18 03:17) Ceftriaxone For Iv Use (Rocephin For I (04/14/18 03:30) Medications Given in ED Current Medications Medications Dose Ordered Sig/Dunia Route Start Time Stop Time Status Last Admin Dose Admin Ceftriaxone Sodium 1000 mg/ Sodium Chloride 50 ml @ 100 mls/hr ONCE ONCE IV 04/14/18 03:30 04/14/18 03:59 DC 04/14/18 04:57 100 MLS/HR Ketorolac Tromethamine 30 mg ONCE ONCE IVP 04/14/18 02:45 04/14/18 02:46 DC 04/14/18 02:58 30 MG Ondansetron HCl 4 mg ONCE ONCE IVP 04/14/18 02:45 04/14/18 02:46 DC 04/14/18 02:58 4 MG Vital Signs/I&O 04/14/18 02:30 Temp 97.6 Pulse 77 Resp 26 B/P (MAP) 132/92 (105) Pulse Ox 99 O2 Delivery Room Air Progress Progress Note #1: Time: 02:45 Progress Note Aseptic vital signs. We'll give her Toradol for her pain and Zofran for her nausea and obtain labs and urinalysis. Differential includes kidney infection, kidney stones, pancreatitis, obstipation, gastritis, much less likely appendicitis. Progress Note #2: Time: 05:19 Progress Note The patient's pain is resolved with Toradol. She said Tylenol Motrin are not working very well for her at home so we can make sure she has some tramadol but then she would have to pump and dump. We'll put her on Keflex for presumed urinary tract infection likely pyelonephritis. She has a follow-up appointment with Dr. CURRY on Tuesday, 3 days from now and we'll encourage her to get a primary care provider established to follow up with as well. Given her return precautions. We did offer her the opportunity to stay in the hospital pain and nausea management and IV antibiotics and she would prefer to go home. Departure Impression Primary Impression: Pyelonephritis, acute Disposition: HOME, SELF-CARE Condition: Improved Departure-Patient Inst. Decision time for Depature: 05:50 Referrals: NO,LOCAL PHYSICIAN (PCP/Family) Primary Care Physician Patient Instructions: Urinary Tract Infection, Adult (DC) Add. Discharge Instructions: Drink lots of fluids. Use the Tylenol and ibuprofen or Naprosyn. Warm baths can be helpful. If you still have breakthrough pain and cannot tolerate it then you can use the tramadol 1 tablet every 6 hours as needed. 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 You may start it tonight. To get the ondansetron and take one tablet every [address] under your tongue for nausea or vomiting as necessary. If you have intractable pain, nausea or vomiting then you may return to the ER for further evaluation. All discharge instructions reviewed with patient and/or family. Voiced understanding. Scripts Tramadol HCl (Tramadol HCl) 50 Mg Tablet 50 MG PO Q6H PRN for PAIN for 7 Days, #20 TAB 0 Refills Prov: CIPRIANO FANG 04/14/18 Ondansetron (Ondansetron Odt) 4 Mg Tab.rapdis 4 MG PO Q6H PRN for NAUSEA/VOMITING, #8 TAB 0 Refills Prov: CIPRIANO FANG 04/14/18 Cephalexin (Cephalexin) 500 Mg Tablet 500 MG PO BID for 10 Days, #20 TAB 0 Refills Prov: CIPRIANO FANG 04/14/18 CIPRIANO FANG Apr 14, 2018 02:46
[2018-04-14 02:48] LABS: RBC,URINE 0-2 /HPF
[2018-04-14 02:49] LABS: BACTERIA,URINE MODERATE /HPF
[2018-04-14 02:51] LABS: AMPHETAMINE SCREEN, URINE NEGATIVE (NEGATIVE); BARBITURATE SCREEN URINE NEGATIVE (NEGATIVE); BENZODIAZEPINES SCREEN URINE NEGATIVE (NEGATIVE); CANNABINOID SCREEN, URINE NEGATIVE (NEGATIVE); COCAINE SCREEN URINE NEGATIVE (NEGATIVE); METHADONE STAT NEGATIVE (NEGATIVE); METHAMPHETAMINE SCREEN URINE S NEGATIVE (NEGATIVE); OPIATE SCREEN URINE NEGATIVE (NEGATIVE); OXYCODONE STAT NEGATIVE (NEGATIVE); PROPOXYPHENE STAT NEGATIVE (NEGATIVE); TRICYCLIC ANTIDEPRESSANTS SCRE NEGATIVE (NEGATIVE)
[2018-04-14 03:10] LABS: BASOPHILS # (AUTO) 0.1 10^3/uL (0.0-0.1); BASOPHILS % (AUTO) 1 % (0-10); EOSINOPHILS # (AUTO) 0.5 10^3/uL (0.0-0.3); EOSINOPHILS % (AUTO) 3 % (0-10); HEMATOCRIT 40 % (35-52); HEMOGLOBIN 12.9 G/DL (11.5-16.0); LYMPHOCYTES # (AUTO) 3.1 X 10^3 (1.0-4.0); LYMPHOCYTES % (AUTO) 18 % (12-44); MEAN CORPUSCULAR HEMOGLOBIN 27 PG (25-34); MEAN CORPUSCULAR HGB CONC 32 G/DL (32-36); MEAN CORPUSCULAR VOLUME 82 FL (80-99); MEAN PLATELET VOLUME 11.8 FL (7.4-10.4); MONOCYTES % (AUTO) 6 % (0-12); NEUTROPHILS # (AUTO) 12.6 X 10^3 (1.8-7.8); NEUTROPHILS % (AUTO) 72 % (42-75); PLATELET COUNT 216 10^3/uL (130-400); RED BLOOD COUNT 4.83 10^6/uL (4.35-5.85); RED CELL DISTRIBUTION WIDTH 14.9 % (10.0-14.5); WHITE BLOOD COUNT 17.4 10^3/uL (4.3-11.0)
[2018-04-14] MEDS ORDERED: NS IV 1000 ML 1,000 ML IV SCH (03:17)
[2018-04-14 03:25] LABS: BAND NEUTROPHILS 2 %; EOSINOPHILS % (MANUAL) 4 %; LYMPHOCYTES % (MANUAL) 20 %; MONOCYTES % (MANUAL) 4 %; NEUTROPHILS % (MANUAL) 70 %; RBC MORPH NORMAL
[2018-04-14 03:30] LABS: ALANINE AMINOTRANSFERASE 14 U/L (0-55); ALBUMIN 4.4 GM/DL (3.2-4.5); ALKALINE PHOSPHATASE 105 U/L (40-136); BILIRUBIN,TOTAL 0.3 MG/DL (0.1-1.0); BUN/CREATININE RATIO 14; CALCIUM 9.4 MG/DL (8.5-10.1); CARBON DIOXIDE 20 MMOL/L (21-32); CHLORIDE 106 MMOL/L (98-107); CREATININE SERUM 0.83 MG/DL (0.60-1.30); GFR ESTIMATED > 60; GLUCOSE 116 MG/DL (70-105); LIPASE 42 U/L (8-78); MAGNESIUM 1.9 MG/DL (1.8-2.4); POTASSIUM 3.9 MMOL/L (3.6-5.0); SODIUM 141 MMOL/L (135-145); TOTAL PROTEIN 7.9 GM/DL (6.4-8.2)
[2018-04-14] MEDS ORDERED: cefTRIAXone FOR IV USE 1,000 MG in NS (IVPB) 50 ML IV ONE (03:30)
[2018-04-14] MEDS ORDERED: TRAM50TA2 PO (05:23)
[2018-04-14] MEDS ORDERED: ONDA4TAB11 PO (05:23)
[2018-04-14] MEDS ORDERED: CEPH500T PO (05:23)
[2018-04-14 06:00] VITALS: BP 140/81
== END 2018-04-14 06:00 | disposition home or self-care (01) ==
LOC: EDUNIT# 02:15 → ER 02:17
DX: N10 Acute pyelonephritis (principal); F41.9 Anxiety disorder, unspecified; F32.9 Major depressive disorder, single episode, unspecified; Z87.891 Personal history of nicotine dependence; Z98.890 Other specified postprocedural states
CPT/HCPCS: 36415; 80053; 80306; 81000; 83605; 83690; 83735; 84703; 85007; 85027; 86141; 87040; 87077; 87088

== ENCOUNTER 2020-10-05 23:38 | Emergency (ER) | payer MEDICARE, OTHER ==
[~2020-10-05] VITALS: Ht 167.7 cm; Wt 84.2 kg
[~2020-10-05 23:38] MED LIST changes: +CEPH500T PO; +ONDA4TAB11 PO; +TRM50T PO
[2020-10-06] MEDS ORDERED: DICYCLOMINE 10 MG/ML (BENTYL) 2 ML AMP IM STA (00:56)
[2020-10-06] MEDS ORDERED: ONDANSETRON 4 MG/2 ML (SDV) Z0FRAN IVP ONE (01:00)
[2020-10-06] MEDS ORDERED: fentaNYL INJ 100 MCG/2 ML AMP IVP ONE (01:00)
[2020-10-06] MEDS ORDERED: NS IV 1000 ML 1,000 ML IV SCH (01:00)
--- NOTE | 2020-10-06 01:01 | ED Abdominal Pain ---
General Chief Complaint: Abdominal/GI Problems Stated Complaint: ABD AND BACK PAIN/SOB Nursing Triage Note: TO ED VIA POV AND AMBULATORY TO ROOM 6 WITH C/O ABD PAIN 1-2X A WEEK FOR ONE YEAR. HAS NOT SEEN DOCTOR FOR THIS PROBLEM. HAS NOT TAKEN ANY OTC MEDS. Sepsis Screen: No Definite Risk Source of Information: Patient Exam Limitations: No Limitations History of Present Illness Date Seen by Provider: Oct 06, 2020 Time Seen by Provider: 00:50 Initial Comments Patient is a 30-year-old female who presents to the emergency department today with a chief complaint of right upper quadrant left upper quadrant and epigastric abdominal discomfort. Onset around 9:00 this evening. Patient states she has had this pain off and on over the course of the last year multiple times. She is not sure what brings it on. She states this is the worst it has ever been. She has been nauseated and vomited this evening. She denies fevers or chills. She denies any problems with bowel or bladder. She has never been seen for this pain before. Patient states that she thought initially it was something in her diet and she quit eating fatty, greasy foods and drinking soda. Patient has not taken anything for the pain this evening. Last menstrual cycle was 2 weeks ago. All other review of systems reviewed and negative except as stated above. Timing/Duration: 1-3 Hours Severity/Quality: Severe, Aching, Sharp Location: RUQ, LUQ, Epigastric Radiation: Back Activities at Onset: None Modifying Factors: Worsens With Breathing Associated Symptoms: Denies Symptoms Allergies and Home Medications Allergies Coded Allergies: No Known Drug Allergies (Unverified , 04/06/16) Home Medications Cephalexin 500 Mg Tablet, 500 MG PO BID Prescribed by: CIPRIANO FANG on 04/14/18 0523 Docusate Sodium 100 Mg Capsule, 100 MG PO BID Prescribed by: BIPIN CURRY on 03/13/18720 Hydrocodone Bit/Acetaminophen 1 Tab Tab, 1-2 TAB PO Q4H PRN for PAIN-MODERATE Prescribed by: BIPIN CURRY on 03/13/18720 Ibuprofen 600 Mg Tablet, 600 MG PO Q6H Prescribed by: BIPIN CURRY on 03/13/18720 Ondansetron 4 Mg Tab.rapdis, 4 MG PO Q6H PRN for NAUSEA/VOMITING Prescribed by: CIPRIANO FANG on 04/14/18522 [id number]/Iron Fumarate/FA/Dss 1 Each Tablet, 1 EACH PO DAILY, (Reported) Sertraline HCl 50 Mg Tablet, 50 MG PO DAILY Prescribed by: BIPIN CURRY on 03/13/18720 Tramadol HCl 50 Mg Tablet, 50 MG PO Q6H PRN for PAIN Prescribed by: CIPRIANO FANG on 04/14/18522 Patient Home Medication List Home Medication List Reviewed: Yes Review of Systems Review of Systems Constitutional: see HPI EENTM: No Symptoms Reported Respiratory: No Symptoms Reported Cardiovascular: No Symptoms Reported Gastrointestinal: Abdominal Pain, Nausea, Vomiting Genitourinary: No Symptoms Reported Musculoskeletal: no symptoms reported Skin: no symptoms reported Psychiatric/Neurological: Anxiety All Other Systems Reviewed Negative Unless Noted: Yes Past Oynneld-Hhvwgw-Xazifg Hx Patient Social History Alcohol Use: Denies Use Smoking Status: Former Smoker Type Used: Cigarettes Former Smoker, Quit: May 26, 2017 2nd Hand Smoke Exposure: No Recent Infectious Disease Expo: No Recent Hopitalizations: No Immunizations Up To Date Date of Influenza Vaccine: Jan 17, 2016 Seasonal Allergies Seasonal Allergies: No Past Medical History Surgeries: Yes ((2) c-sections) Respiratory: No Cardiac: No Neurological: No Female Reproductive Disorders: Denies Sexually Transmitted Disease: No HIV/AIDS: No Genitourinary: No Gastrointestinal: Yes (DURING ) Musculoskeletal: No Endocrine: No HEENT: Yes (GLASSES) Loss of Vision: Bilateral Cancer: No Psychosocial: Yes Anxiety, Depression Integumentary: No Blood Disorders: No Adverse Reaction/Blood Tranf: No (N/A) Family Medical History Depression Physical Exam Vital Signs Vital Signs - First Documented 10/06/20 00:46 Temp 36.5 Pulse 69 Resp 20 B/P (MAP) 126/78 (94) O2 Delivery Room Air Capillary Refill : Less Than 3 Seconds Height/Weight/BMI Height: 5'6.00" Weight: 230lbs. 0.0oz. 104.104007qd; 29.00 BMI Method:Stated General Appearance: WD/WN, moderate distress Respiratory: lungs clear, normal breath sounds, no respiratory distress, no accessory muscle use Cardiovascular: regular rate, rhythm Gastrointestinal: soft, abnormal bowel sounds (Hypoactive), tenderness (Significant tenderness in the epigastrium and right upper quadrant. Positive Wright sign) Extremities: normal range of motion, normal inspection Neurologic/Psychiatric: alert, normal mood/affect, oriented x 3 Skin: normal color, warm/dry Progress/Results/Core Measures Results/Orders Lab Results Laboratory Tests Test 10/06/20 01:00 Range/Units White Blood Count 16.8 H 4.3-11.0 10^3/uL Red Blood Count 4.85 3.80-5.11 10^6/uL Hemoglobin 13.8 11.5-16.0 g/dL Hematocrit 42 35-52 % Mean Corpuscular Volume 86 80-99 fL Mean Corpuscular Hemoglobin 29 25-34 pg Mean Corpuscular Hemoglobin Concent 33 32-36 g/dL Red Cell Distribution Width 13.1 10.0-14.5 % Platelet Count 166 130-400 10^3/uL Mean Platelet Volume 12.1 9.0-12.2 fL Immature Granulocyte % (Auto) 0 % Neutrophils (%) (Auto) 69 42-75 % Lymphocytes (%) (Auto) 21 12-44 % Monocytes (%) (Auto) 5 0-12 % Eosinophils (%) (Auto) 3 0-10 % Basophils (%) (Auto) 1 0-10 % Neutrophils # (Auto) 11.7 H 1.8-7.8 10^3/uL Lymphocytes # (Auto) 3.6 1.0-4.0 10^3/uL Monocytes # (Auto) 0.8 0.0-1.0 10^3/uL Eosinophils # (Auto) 0.6 H 0.0-0.3 10^3/uL Basophils # (Auto) 0.1 0.0-0.1 10^3/uL Immature Granulocyte # (Auto) 0.1 0.0-0.1 10^3/uL Sodium Level 140 135-145 MMOL/L Potassium Level 3.6 3.6-5.0 MMOL/L Chloride Level 104 98-107 MMOL/L Carbon Dioxide Level 22 21-32 MMOL/L Anion Gap 14 5-14 MMOL/L Blood Urea Nitrogen 11 7-18 MG/DL Creatinine 0.86 0.60-1.30 MG/DL Estimat Glomerular Filtration Rate > 60 BUN/Creatinine Ratio 13 Glucose Level 118 H 70-105 MG/DL Calcium Level 10.0 8.5-10.1 MG/DL Corrected Calcium 8.5-10.1 MG/DL Total Bilirubin 0.3 0.1-1.0 MG/DL Aspartate Amino Transf (AST/SGOT) 13 5-34 U/L Alanine Aminotransferase (ALT/SGPT) 15 0-55 U/L Alkaline Phosphatase 53 40-136 U/L Total Protein 8.2 6.4-8.2 GM/DL Albumin 4.6 H 3.2-4.5 GM/DL Lipase 42 8-78 U/L My Orders Orders - JERRY NUÑEZ MD Ed Iv/Invasive Line Start (10/06/20 00:56) Cbc With Automated Diff (10/06/20 00:56) Comprehensive Metabolic Panel (10/06/20 00:56) Lipase (10/06/20 00:56) Urine Bedside (10/06/20 00:56) Ns Iv 1000 Ml (Sodium Chloride 0.9%) (10/06/20 01:00) Dicyclomine Injection (Bentyl Injection) (10/06/20 00:56) Fentanyl Inj (Sublimaze Injection) (10/06/20 01:00) Ondansetron Injection (Zofran Injectio (10/06/20 01:00) Manual Differential (10/06/20 01:00) Morphine Injection (Morphine Injection (10/06/20 01:45) Hydrocodone/Apap 5/325 Tablet (Lortab 5 (10/06/20 02:15) Morphine Injection (Morphine Injection (10/06/20 02:05) Rx-Hydrocodone/Apap 5-325 Mg (Rx-Vicodin (10/06/20 02:15) Medications Given in ED Current Medications Medications Dose Ordered Sig/Dunia Route Start Time Stop Time Status Last Admin Dose Admin Fentanyl Citrate 25 mcg ONCE ONCE IVP 10/06/20 01:00 10/06/20 01:01 DC 10/06/20 01:14 25 MCG Ondansetron HCl 4 mg ONCE ONCE IVP 10/06/20 01:00 10/06/20 01:01 DC 10/06/20 01:13 4 MG Vital Signs/I&O 10/06/20 00:46 Temp 36.5 Pulse 69 Resp 20 B/P (MAP) 126/78 (94) O2 Delivery Room Air Blood Pressure Mean: 94 Progress Progress Note : Time: 02:07 Progress Note Patient is feeling much better. Her pain is down to a "6" from a "10". We will give her another round of morphine along with a hydrocodone tablet here. I am scheduling her for an outpatient gallbladder ultrasound this morning at 730. Will have the ultrasound report sent to Dr. Marley for follow-up for the patient regarding likely biliary colic. She does have an elevated white blood cell co unt today but no elevations in her liver functions. I suspect she probably has gallstones and a stone stuck in the neck of her gallbladder. She is not septic at this time. She is not tachycardic or febrile. No signs of endorgan damage to the liver. I think it will be safe to control her pain and have her come back in 5 hours for the gallbladder ultrasound. Patient is given good return precautions. She verbalized understanding. All questions are sought and answered. Patient is stable for discharge. Departure Impression Primary Impression: Abdominal pain Qualified Codes: R10.13 - Epigastric pain Additional Impression: Biliary colic Disposition: HOME, SELF-CARE Condition: Stable Departure-Patient Inst. Decision time for Depature: 02:09 Referrals: PATRICIA MARLEY MD NO,LOCAL PHYSICIAN (PCP) Primary Care Physician Patient Instructions: Gallbladder Diet, No Instuctions Given Add. Discharge Instructions: Come back to the emergency department if you have a return of pain especially with fever vomiting or other emergent concerns. I want you to come back into the hospital to registration at 7:30 in the morning for a gallbladder ultrasound this morning. Do not eat or drink anything the rest of the night. I have given you some hydrocodone tablets this evening. You can take 1 more in 4 to 6 hours as needed for pain. Take this with a sip of water. I have also given you Dr. Marley's contact information, he is the general surgeon on-call and who takes care of gallbladder problems. If you have no signs of an infected gallbladder on your ultrasound this morning. You can call him for follow-up of the abdominal pain. Scripts Hydrocodone/Acetaminophen (Hydrocodone-Acetamin 5-325 mg) 1 Each Tablet 1 TAB PO Q6H PRN for PAIN-MODERATE (5-7), #10 TAB Prov: JERRY NUÑEZ MD 10/06/20 Ondansetron (Ondansetron Odt) 4 Mg Tab.rapdis 4 MG PO Q8H PRN for nausea, #10 TAB Prov: JERRY NUÑEZ MD 10/06/20 JERRY NUÑEZ MD Oct 06, 2020 01:01
[2020-10-06 01:06] LABS: BASOPHILS # (AUTO) 0.1 10^3/uL (0.0-0.1); BASOPHILS % (AUTO) 1 % (0-10); EOSINOPHILS # (AUTO) 0.6 10^3/uL (0.0-0.3); EOSINOPHILS % (AUTO) 3 % (0-10); HEMATOCRIT 42 % (35-52); HEMOGLOBIN 13.8 g/dL (11.5-16.0); LYMPHOCYTES # (AUTO) 3.6 10^3/uL (1.0-4.0); LYMPHOCYTES % (AUTO) 21 % (12-44); MEAN CORPUSCULAR HEMOGLOBIN 29 pg (25-34); MEAN CORPUSCULAR HGB CONC 33 g/dL (32-36); MEAN CORPUSCULAR VOLUME 86 fL (80-99); MEAN PLATELET VOLUME 12.1 fL (9.0-12.2); MONOCYTES # (AUTO) 0.8 10^3/uL (0.0-1.0); MONOCYTES % (AUTO) 5 % (0-12); NEUTROPHILS # (AUTO) 11.7 10^3/uL (1.8-7.8); NEUTROPHILS % (AUTO) 69 % (42-75); PLATELET COUNT 166 10^3/uL (130-400); WHITE BLOOD COUNT 16.8 10^3/uL (4.3-11.0)
[2020-10-06 01:17] LABS: ALBUMIN 4.6 GM/DL (3.2-4.5); CHLORIDE 104 MMOL/L (98-107); POTASSIUM 3.6 MMOL/L (3.6-5.0); SODIUM 140 MMOL/L (135-145)
[2020-10-06 01:20] LABS: GLUCOSE 118 MG/DL (70-105); TOTAL PROTEIN 8.2 GM/DL (6.4-8.2)
[2020-10-06 01:21] LABS: CARBON DIOXIDE 22 MMOL/L (21-32)
[2020-10-06 01:22] LABS: BILIRUBIN,TOTAL 0.3 MG/DL (0.1-1.0)
[2020-10-06 01:23] LABS: ALKALINE PHOSPHATASE 53 U/L (40-136); CREATININE SERUM 0.86 MG/DL (0.60-1.30); GFR ESTIMATED > 60
[2020-10-06 01:24] LABS: BUN/CREATININE RATIO 13
[2020-10-06 01:26] LABS: ALANINE AMINOTRANSFERASE 15 U/L (0-55)
[2020-10-06 01:27] LABS: LIPASE 42 U/L (8-78)
[2020-10-06] MEDS ORDERED: morphine INJ 10 MG/ML 1ML (SYR OR VIAL) IVP STA ×2 (01:45→02:05)
[2020-10-06] MEDS ORDERED: ONDA4TAB11 PO (02:11)
[2020-10-06] MEDS ORDERED: ACHD5005 PO (02:11)
[2020-10-06] MEDS ORDERED: HYDROcodone/APAP 5 MG/325 MG (LORTAB) TAB PO ONE (02:15)
[2020-10-06 02:24] VITALS: BP 122/61
[2020-10-06 02:30] LABS: BASOPHILS % (MANUAL) 2 %; EOSINOPHILS % (MANUAL) 4 %; LYMPHOCYTES % (MANUAL) 20 %; NEUTROPHILS % (MANUAL) 65 %; RBC MORPH NORMAL; REACTIVE LYMPHOCYTES 9 %
== END 2020-10-06 02:24 | disposition home or self-care (01) ==
LOC: EDUNIT# 23:38 → ER 23:42
DX: K80.50 Calculus of bile duct without cholangitis or cholecystitis without obstruction (principal); D72.829 Elevated white blood cell count, unspecified; F41.9 Anxiety disorder, unspecified; F32.9 Major depressive disorder, single episode, unspecified; Z87.891 Personal history of nicotine dependence; Z79.899 Other long term (current) drug therapy
CPT/HCPCS: 36415; 80053; 83690; 84703; 85007; 85027

== ENCOUNTER → 2020-10-06 | Outpatient (CLI) | payer OTHER ==
--- NOTE | 2020-10-06 09:24 | Diagnostic Imaging Report ---
PROCEDURE: US Gallbladder. TECHNIQUE: Multiple real-time grayscale images were obtained over the right upper quadrant in various projections. INDICATION: Right upper quadrant pain as well as epigastric pain and nausea and vomiting. The liver is slightly enlarged at 18.2 cm. No discrete liver mass is identified. The portal vein is patent and shows normal direction of flow. Gallbladder does contain several stones. In addition, gallbladder wall is borderline in thickness at 3 mm. No pericholecystic fluid is seen, however, the extrahepatic bile duct is dilated to 10 mm. No definite common duct stones are seen. There appears to be some slight intrahepatic ductal dilatation as well. Pancreas unremarkable. Aorta is nonaneurysmal. IVC is patent. Right kidney is without calculi or hydronephrosis. There is no ascites. IMPRESSION: Cholelithiasis with findings suspicious for acute cholecystitis. There is extrahepatic and intrahepatic biliary ductal dilatation. While no common duct stone is visualized sonographically, possibility cannot be entirely excluded. Dictated by: Dictated on workstation # [id number]
== END ==
LOC: RAD 08:30
PROVIDERS: ATTEND Emergency Medicine
DX: K80.20 Calculus of gallbladder without cholecystitis without obstruction (principal)
CPT/HCPCS: 76705